=== PATIENT | female | born 1985 | race African-American/Black ===

== ENCOUNTER 2023-03-14 06:32 | Inpatient (IN) | payer BC ==
[2023-03-14] VITALS (7 sets, daily range): BP systolic 102–114; BP diastolic 57–69; PULSE 81–96; RESP 15–19; TEMP 98.1–99.3; O2SAT 97–100
[~2023-03-14] VITALS: Ht 165.1 cm; Wt 85.4 kg
[~2023-03-14 06:32] MED LIST: METF-490 PO; TOPI100T29 PO
[2023-03-14] MEDS ORDERED: LIDOCAINE 4MG/ML IV SOLN 500 ML IV ONE (06:34)
[2023-03-14] MEDS ORDERED: MAGNESIUM SULFATE 1GM/100ML 200 ML IV ONE (06:34)
[2023-03-14] MEDS ORDERED: CELECOXIB 100 MG CAP PO ONE (06:45)
[2023-03-14] MEDS ORDERED: oxyCODONE ER 10 MG TAB PO ONE ×2 (06:45→12:31)
[2023-03-14] MEDS ORDERED: ACETAMINOPHEN 500 MG TAB PO ONE (06:45)
[2023-03-14] MEDS ORDERED: GABAPENTIN 300 MG CAP PO ONE (06:45)
[2023-03-14] MEDS ORDERED: TRANEXAMIC ACID 30 ML ONE (06:56)
[2023-03-14] MEDS ORDERED: ACETAMINOPHEN IV 100 ML IV ONE (07:03)
[2023-03-14] MEDS ORDERED: PROPOFOL 10 MG/ML 20 ML IV ONE ×3 (07:06→10:09)
[2023-03-14] MEDS ORDERED: SODIUM CHLORIDE LOCK 10 ML ONE ×3 (07:06→11:11)
[2023-03-14] MEDS ORDERED: GLYCOPYRROLATE 0.2 MG/ML 1ML VIAL ONE (07:06)
[2023-03-14] MEDS ORDERED: ROCURONIUM 10MG/ML 10ML VIAL IV ONE (07:06)
[2023-03-14] MEDS ORDERED: DexAMETHasone SOD PHOS 10MG/1ML VIAL INJ ONE (07:06)
[2023-03-14] MEDS ORDERED: LIDOCAINE 2% (LOCAL ANESTH.) PF 5ml SDV ONE (07:06)
[2023-03-14] MEDS ORDERED: ONDANSETRON HCL 4 MG/2 ML VIAL ONE (07:06)
[2023-03-14] MEDS ORDERED: PHENYLEPHRINE HCL 10 MG/ML VL IV ONE (07:10)
[2023-03-14] MEDS ORDERED: ceFAZolin 1GM/50ML 100 ML IV ONE (07:21)
[2023-03-14] MEDS ORDERED: ONDANSETRON HCL 4 MG/2 ML VIAL IV PRN ×2 (08:00→12:00)
[2023-03-14] MEDS ORDERED: MORPHINE SULFATE INJ 2 MG/ml SYRG IV PRN (08:00)
[2023-03-14] MEDS ORDERED: NITROGLYCERIN 0.4 MG SL TAB SL PRN (08:00)
[2023-03-14] MEDS ORDERED: HYDROcodone-ACET 10/325MG TAB PO PRN (08:00)
[2023-03-14] MEDS ORDERED: ACETAMINOPHEN 325 MG TAB PO PRN (08:00)
[2023-03-14] MEDS ORDERED: fentaNYL CITRATE 100 MCG/2 ML VL ONE (08:04)
[2023-03-14] MEDS ORDERED: ACETAMINOPHEN IV 1000 MG/100ML (10MG/ML) IV ONE (08:45)
[2023-03-14] MEDS ORDERED: ceFAZolin 1GM VL ONE (11:11)
[2023-03-14] MEDS ORDERED: hydrALAZINE HCL 20 MG/ML VL IV PRN (12:00)
[2023-03-14] MEDS ORDERED: NALOXONE HCL 0.4 MG/ML VIAL IV PRN (12:00)
[2023-03-14] MEDS ORDERED: ePHEDrine SULFATE 50 MG/ML AMP IV PRN (12:00)
[2023-03-14] MEDS ORDERED: HYDROmorphone HCL 2 MG/ML VL/or syr IV PRN ×2 (12:00→12:45)
[2023-03-14] MEDS ORDERED: LABETALOL HCL 5 MG/ML 4ML SYRINGE IV PRN (12:00)
[2023-03-14] MEDS ORDERED: FLUMAZENIL 0.1 MG/ML INJ 10ML MDV IV PRN (12:00)
[2023-03-14] MEDS ORDERED: fentaNYL CITRATE 100 MCG/2 ML VL IV PRN (12:00)
[2023-03-14] MEDS ORDERED: CYCLOBENZAPRINE HCL 10 MG TAB PO ONE (12:30)
[2023-03-14] MEDS ORDERED: MEPERIDINE HCL (25 MG/ML) 1ML VIAL ONE (12:42)
[2023-03-14] MEDS ORDERED: MEPERIDINE HCL (25 MG/ML) 1ML VIAL IV ONE (12:43)
[2023-03-14] MEDS ORDERED: MEPERIDINE HCL (25 MG/ML) 1ML VIAL IM ONE (12:45)
[2023-03-14] MEDS: D5W/SOD CHLO 0.9% 1,000 ML IV SCH (19:00)
[2023-03-14] MEDS: ceFAZolin 1GM/50ML 50 ML IV SCH (20:07)
[2023-03-14] MEDS ORDERED: DEXTROSE (50%) 50ML SYRG IV PRN (20:15)
[2023-03-14] MEDS: InsuLIN REG 1unit/0.01ml Soln (100units/ml) SC SCH (22:00)
[2023-03-14] MEDS: CYCLOBENZAPRINE HCL 10 MG TAB PO SCH (22:00)
[2023-03-14] MEDS: ACCU-CHEK COMFORT CURVE STRIP VI SCH (22:00)
[2023-03-15] VITALS (7 sets, daily range): BP systolic 92–127; BP diastolic 54–82; PULSE 54–110; RESP 14–18; TEMP 98.1–99.1; O2SAT 95–100
[2023-03-15] MEDS: ceFAZolin 1GM/50ML 50 ML IV SCH
[2023-03-15] MEDS: ACCU-CHEK COMFORT CURVE STRIP VI SCH ×4 (05:42→22:00)
[2023-03-15] MEDS: InsuLIN REG 1unit/0.01ml Soln (100units/ml) SC SCH ×4 (05:45→22:00)
[2023-03-15] MEDS: CYCLOBENZAPRINE HCL 10 MG TAB PO SCH ×3 (06:01→22:00)
[2023-03-15] MEDS: MORPHINE SULFATE INJ 2 MG/ml SYRG IV PRN ×3 (06:45→18:48)
[2023-03-15] MEDS ORDERED: ceFAZolin 1GM/50ML 100 ML IV ONE (08:45)
[2023-03-15] MEDS: TOPIRAMATE 100 MG TAB PO SCH ×2 (11:03→22:11)
[2023-03-15] MEDS: DOCUSATE SOD 100 MG CAP PO SCH ×2 (11:03→22:11)
[2023-03-15] MEDS: oxyCODONE HCL 5MG TAB PO PRN (14:51)
[2023-03-16] MEDS: MORPHINE SULFATE INJ 2 MG/ml SYRG IV PRN ×2 (01:55→10:59)
[2023-03-16 05:00] VITALS: BP 121/88; PULSE 95; RESP 16; TEMP 98.2; O2SAT 93
[2023-03-16] MEDS: ACCU-CHEK COMFORT CURVE STRIP VI SCH ×4 (05:48→21:21)
[2023-03-16] MEDS: InsuLIN REG 1unit/0.01ml Soln (100units/ml) SC SCH ×4 (05:48→21:04)
[2023-03-16] MEDS: CYCLOBENZAPRINE HCL 10 MG TAB PO SCH ×3 (06:16→21:20)
[2023-03-16 08:00] VITALS: PULSE 102; RESP 18; O2SAT 96
[2023-03-16 09:00] VITALS: BP 128/87; PULSE 94; RESP 16; TEMP 99.4; O2SAT 100
[2023-03-16] MEDS: DOCUSATE SOD 100 MG CAP PO SCH ×3 (10:00→21:20)
[2023-03-16] MEDS: TOPIRAMATE 100 MG TAB PO SCH ×3 (10:00→21:20)
[2023-03-16] MEDS: D5W/SOD CHLO 0.9% 1,000 ML IV SCH (10:00)
[2023-03-16 17:00] VITALS: BP 111/75; PULSE 88; RESP 14; TEMP 99.2; O2SAT 97
[2023-03-16 20:00] VITALS: PULSE 79; PULSE 84; RESP 16; TEMP 37.3; O2SAT 98
[2023-03-16 22:00] VITALS: BP 101/53; PULSE 50; RESP 18; TEMP 98.5; O2SAT 96
[2023-03-16] MEDS: oxyCODONE HCL 5MG TAB PO PRN (23:22)
[2023-03-17] VITALS (7 sets, daily range): BP systolic 92–112; BP diastolic 47–71; PULSE 95–122; RESP 14–20; TEMP 97.9–98.6; O2SAT 68–100
[2023-03-17] MEDS: InsuLIN REG 1unit/0.01ml Soln (100units/ml) SC SCH ×4 (04:38→21:35)
[2023-03-17] MEDS: ACCU-CHEK COMFORT CURVE STRIP VI SCH ×4 (04:38→21:39)
[2023-03-17] MEDS: CYCLOBENZAPRINE HCL 10 MG TAB PO SCH ×3 (06:01→21:30)
[2023-03-17] MEDS: DOCUSATE SOD 100 MG CAP PO SCH ×2 (09:29→21:34)
[2023-03-17] MEDS: TOPIRAMATE 100 MG TAB PO SCH ×2 (09:29→21:32)
[2023-03-17] MEDS: D5W/SOD CHLO 0.9% 1,000 ML IV SCH ×2 (16:00→21:29)
[2023-03-18] MEDS: CYCLOBENZAPRINE HCL 10 MG TAB PO SCH ×2 (03:28→13:44)
[2023-03-18 05:00] VITALS: BP 103/65; PULSE 93; TEMP 98.5; O2SAT 65
[2023-03-18] MEDS: InsuLIN REG 1unit/0.01ml Soln (100units/ml) SC SCH ×3 (06:00→17:00)
[2023-03-18] MEDS: ACCU-CHEK COMFORT CURVE STRIP VI SCH ×3 (06:00→17:00)
[2023-03-18 08:00] VITALS: PULSE 102; RESP 18; O2SAT 96
[2023-03-18 09:00] VITALS: BP_SYST 115; BP_SYST 97; BP_DIAS 52; BP_DIAS 67; PULSE 119; PULSE 61; RESP 14; RESP 16; TEMP 98; O2SAT 97; O2SAT 98
[2023-03-18] MEDS: TOPIRAMATE 100 MG TAB PO SCH (09:27)
[2023-03-18] MEDS: DOCUSATE SOD 100 MG CAP PO SCH (09:27)
[2023-03-18] MEDS: D5W/SOD CHLO 0.9% 1,000 ML IV SCH (12:00)
[2023-03-18 13:00] VITALS: BP 100/63; PULSE 100; RESP 16; TEMP 98.1; O2SAT 98
[2023-03-18 16:16] VITALS: TEMP 36.7
[2023-03-18 17:00] VITALS: BP 102/62; PULSE 115; RESP 16; TEMP 97.7; O2SAT 95
== END 2023-03-18 18:47 | disposition home health service (06) | DRG 455 ==
LOC: SUR 06:32 → TELE 07:58 → TELE-WESTW 15:08
PROVIDERS: ADMIT Internal Medicine; ATTEND Internal Medicine
PROC: 0SG3071 Fusion of Lumbosacral Joint with Autologous Tissue Substitute, Posterior Approach, Posterior Column, Open Approach (ICD-10-PCS; 2023-03-14)
PROC: 01NB0ZZ Release Lumbar Nerve, Open Approach (ICD-10-PCS; 2023-03-14)
PROC: 01NR0ZZ Release Sacral Nerve, Open Approach (ICD-10-PCS; 2023-03-14)
PROC: 4A11X4G Monitoring of Peripheral Nervous Electrical Activity, Intraoperative, External Approach (ICD-10-PCS; 2023-03-14)
PROC: 0SG30AJ Fusion of Lumbosacral Joint with Interbody Fusion Device, Posterior Approach, Anterior Column, Open Approach (ICD-10-PCS; principal; 2023-03-14 07:29)
DX: M48.062 Spinal stenosis, lumbar region with neurogenic claudication (principal); E11.9 Type 2 diabetes mellitus without complications; E28.2 Polycystic ovarian syndrome; G89.29 Other chronic pain; M51.16 Intervertebral disc disorders with radiculopathy, lumbar region; Z79.84 Long term (current) use of oral hypoglycemic drugs
CPT/HCPCS: 36415; 72100; 76000; 81025; 82962; 84702; 86850; 86900; 86901; 97110; 97116; 97163; 97530; G0378; J0131; J0690; J1100; J1815; J2001; J2405; J2704; J7042

== ENCOUNTER 2024-02-04 07:40 | Inpatient (IN) | payer BC ==
[~2024-02-04] VITALS: Ht 165.1 cm; Wt 78.4 kg
[2024-02-04] MEDS: LIDOCAINE 2% JELLY 11ml (GLYDO) ONE (07:54)
[2024-02-04] MEDS: TRANEXAMIC ACID 20 ML ONE (07:54)
[2024-02-04] MEDS ORDERED: levoFLOXacin 750MG 150 ML IV ONE (08:15)
[2024-02-04] MEDS: METOCLOPRAMIDE HCL 5MG/ml INJ 2ml VIAL IV ONE (08:45)
[2024-02-04] MEDS ORDERED: HYDROmorphone HCL 2 MG/ML VL/or syr IV PRN (08:45)
[2024-02-04] MEDS ORDERED: MORPHINE SULFATE INJ 2 MG/ml SYRG IV PRN ×2 (08:45→15:30)
[2024-02-04] MEDS ORDERED: fentaNYL CITRATE 100 MCG/2 ML VL IV PRN (08:45)
[2024-02-04] MEDS: KETOROLAC TROMETH 30 MG/ML 1ML VIAL IV ONE (08:45)
[2024-02-04] MEDS ORDERED: ROCURONIUM 10MG/ML 10ML VIAL IV ONE (09:12)
[2024-02-04] MEDS ORDERED: fentaNYL CITRATE 100 MCG/2 ML VL ONE ×2 (09:12→14:00)
[2024-02-04] MEDS ORDERED: LIDOCAINE 1% INJ PF 5ML AMP ONE (09:12)
[2024-02-04] MEDS ORDERED: ONDANSETRON HCL 4 MG/2 ML VIAL ONE (09:12)
[2024-02-04] MEDS ORDERED: DexAMETHasone SOD PHOS 10MG/1ML VIAL INJ ONE (09:12)
[2024-02-04] MEDS ORDERED: SODIUM CHLORIDE LOCK 10 ML ONE (09:12)
[2024-02-04] MEDS ORDERED: KETAMINE 50mg/ML 1ml syringe ONE (09:12)
[2024-02-04] MEDS ORDERED: NEOSTIGMINE 1 MG/ML INJ (10mg/10ML VIAL) ONE (09:12)
[2024-02-04] MEDS ORDERED: GLYCOPYRROLATE 0.2 MG/ML 1ML VIAL ONE (09:12)
[2024-02-04] MEDS ORDERED: MEPERIDINE HCL (50 MG/ML) 1 ML VIAL ONE (09:12)
[2024-02-04] MEDS ORDERED: MIDAZOLAM HCL 2MG/2ML 2ml VIAL (1mg/ml) ONE (09:12)
[2024-02-04] MEDS: ceFAZolin 2 GM/D5W50ml 50 ML IV ONE (10:57)
[2024-02-04] MEDS ORDERED: PROPOFOL 10 MG/ML 20 ML IV ONE ×2 (13:57)
[2024-02-04] MEDS: BACITRACIN TOP OINT 1 UD PKG TOP ONE (14:14)
[2024-02-04 14:24] VITALS: O2SAT 99
[2024-02-04] MEDS: HYDROmorphone HCL 2 MG/ML VL/or syr ONE (14:50)
[2024-02-04] MEDS: HYDROmorphone HCL 2 MG/ML VL/or syr IV PRN (14:52)
[2024-02-04] MEDS: MEPERIDINE HCL (25 MG/ML) 1ML VIAL ONE (14:54)
[2024-02-04] MEDS: MEPERIDINE HCL (25 MG/ML) 1ML VIAL IV ONE (14:55)
[2024-02-04] MEDS ORDERED: ACETAMINOPHEN 325 MG TAB PO PRN (15:30)
[2024-02-04] MEDS ORDERED: ONDANSETRON HCL 4 MG/2 ML VIAL IV PRN (15:30)
[2024-02-04] MEDS ORDERED: NITROGLYCERIN 0.4 MG SL TAB SL PRN (15:30)
[2024-02-04 16:58] VITALS: BP 108/65; PULSE 86; RESP 16; TEMP 98.5; O2SAT 98
[2024-02-04] MEDS: MORPHINE SULFATE INJ 2 MG/ml SYRG IV PRN (17:14)
[2024-02-04] MEDS ORDERED: ATOR40TA52 PO (18:38)
[2024-02-04 20:00] VITALS: PULSE 71; RESP 20; O2SAT 100
[2024-02-04 21:00] VITALS: BP 88/41; PULSE 64; RESP 20; TEMP 97.9; O2SAT 98
[2024-02-04] MEDS: DOCUSATE SOD 100 MG CAP PO SCH (22:00)
[2024-02-04] MEDS: CYCLOBENZAPRINE HCL 10 MG TAB PO SCH (22:01)
[2024-02-04] MEDS: ceFAZolin 1GM/50ML 50 ML IV SCH (22:01)
[2024-02-05 01:00] VITALS: BP 106/67; PULSE 82; RESP 22; TEMP 98.1; O2SAT 98
[2024-02-05] MEDS: D5W/SOD CHLO 0.9% 1,000 ML IV SCH (01:34)
[2024-02-05] MEDS: HYDROcodone-ACET 10/325MG TAB PO PRN (04:43)
[2024-02-05 05:00] VITALS: BP 98/54; PULSE 66; RESP 17; TEMP 99.2; O2SAT 100
[2024-02-05 08:00] VITALS: PULSE 69; RESP 16; O2SAT 98
[2024-02-05 09:04] VITALS: BP 105/59; PULSE 69; RESP 16; TEMP 98.1; O2SAT 98
[2024-02-05] MEDS ORDERED: THROAT LOZENGES(CEPASTAT) MT PRN (11:45)
[2024-02-05 12:10] VITALS: BP_SYST 114; BP_SYST 131; BP_DIAS 71; BP_DIAS 76; PULSE 66; PULSE 84; RESP 16; TEMP 98.3; TEMP 98.4; O2SAT 97
[2024-02-05] MEDS ORDERED: CYCL-611 PO (13:19)
[2024-02-05] MEDS ORDERED: HYDR-4798 PO (13:19)
[2024-02-05] MEDS ORDERED: DOCU-265 PO (13:19)
[2024-02-05 16:50] VITALS: BP 131/79; PULSE 80; RESP 16; TEMP 98.5; O2SAT 97
== END 2024-02-05 17:40 | disposition home health service (06) | DRG 518 ==
LOC: SUR 07:40 → OVERFLOW 15:27 → WEST WING 16:40
PROVIDERS: ADMIT Orthopaedic Surgery; ATTEND Orthopaedic Surgery
PROC: 01N10ZZ Release Cervical Nerve, Open Approach (ICD-10-PCS; 2024-02-04)
PROC: 00NW0ZZ Release Cervical Spinal Cord, Open Approach (ICD-10-PCS; 2024-02-04)
PROC: 0RB30ZZ Excision of Cervical Vertebral Disc, Open Approach (ICD-10-PCS; 2024-02-04)
PROC: 0RR30JZ Replacement of Cervical Vertebral Disc with Synthetic Substitute, Open Approach (ICD-10-PCS; principal; 2024-02-04 10:55)
DX: M48.02 Spinal stenosis, cervical region (principal); E11.9 Type 2 diabetes mellitus without complications; I25.10 Atherosclerotic heart disease of native coronary artery without angina pectoris; Z79.899 Other long term (current) drug therapy; Z82.49 Family history of ischemic heart disease and other diseases of the circulatory system; Z83.3 Family history of diabetes mellitus; Z98.1 Arthrodesis status
CPT/HCPCS: 72040; 76000; 86850; 86900; 86901; 97163; G0378; J1100; J2250; J2405; J2704